=== PATIENT | female | born 1975 | race Caucasian/White ===

== ENCOUNTER 2018-07-05 19:22 | Emergency (ER) | payer BC, MEDICAID ==
[~2018-07-05] VITALS: Ht 165.1 cm; Wt 69.0 kg
[2018-07-05 19:28] VITALS: BP 126/89
[2018-07-05] MEDS ORDERED: CEPH-571 PO (19:58)
[2018-07-05] MEDS ORDERED: ONDA4TAB6 PO (19:58)
== END 2018-07-05 20:13 | disposition home or self-care (01) ==
LOC: ER 19:23
DX: J32.0 Chronic maxillary sinusitis (principal); B96.89 Other specified bacterial agents as the cause of diseases classified elsewhere; Z88.0 Allergy status to penicillin
CPT/HCPCS: 99283

== ENCOUNTER 2018-07-27 15:01 | Emergency (ER) | payer BC, OTHER ==
[~2018-07-27] VITALS: Ht 165.1 cm; Wt 63.6 kg
[~2018-07-27 15:01] MED LIST: CEPH-571 PO; ONDA4TAB6 PO
[2018-07-27 15:13] VITALS: BP 125/79
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
--- NOTE | 2018-07-27 15:35 | NUR ---
neck collar replaced with bigger size when admitted into room 13.
[2018-07-27] MEDS ORDERED: ONDA4TAB6 PO (16:01)
[2018-07-27] MEDS ORDERED: CYCL-1 PO (16:01)
== END 2018-07-27 16:22 | disposition home or self-care (01) ==
LOC: ER 15:02
DX: F07.81 Postconcussional syndrome (principal); M54.2 Cervicalgia; M62.838 Other muscle spasm; Z88.0 Allergy status to penicillin; W01.198A Fall on same level from slipping, tripping and stumbling with subsequent striking against other object, initial encounter; Y93.89 Activity, other specified; Y92.89 Other specified places as the place of occurrence of the external cause; Y99.9 Unspecified external cause status
CPT/HCPCS: 99283

== ENCOUNTER 2018-08-03 10:34 | Emergency (ER) | payer BC, OTHER ==
[~2018-08-03] VITALS: Ht 165.1 cm; Wt 68.0 kg
[~2018-08-03 10:34] MED LIST changes: +CYCL-1 PO
--- NOTE | 2018-08-03 11:06 | NUR ---
called to bed 19 to ekg, attempted ekg but machine was not working, took pt to room and did ekg
[2018-08-03 13:32] VITALS: BP 143/97
== END 2018-08-03 13:37 | disposition home or self-care (01) ==
LOC: ER 10:34
DX: G44.309 Post-traumatic headache, unspecified, not intractable (principal); F07.81 Postconcussional syndrome; Z88.0 Allergy status to penicillin
CPT/HCPCS: 70450; 93005; 99284

== ENCOUNTER 2024-05-31 13:50 | Emergency (ER) | payer BC ==
[~2024-05-31] VITALS: Ht 165.1 cm; Wt 64.5 kg
[2024-05-31 14:21] LABS: URINE HCG NEGATIVE (NEG)
[2024-05-31 14:25] LABS: BILIRUBIN,URINE NEGATIVE (Neg); CLARITY,URINE SLIGHTLY CLOUDY (Clear); COLOR,URINE YELLOW (Yellow); GLUCOSE, URINE NEGATIVE (Neg); KETONES,URINE NEGATIVE (Neg); LEUKOCYTE ESTERASE ,URINE NEGATIVE (Neg); NITRITES, URINE NEGATIVE (Neg); OCCULT BLOOD,URINE TRACE-INTACT (Neg); PH,URINE 5.5 (4.8-8.0); PROTEIN,URINE NEGATIVE (Neg); UROBILINOGEN,URINE 0.2 E.U/dL (0.2-1.0)
[2024-05-31 14:31] LABS: UA COLLECTION TYPE CLN CATCH MIDSTREAM
[2024-05-31 14:43] LABS: BACTERIA,URINE 2+ /HPF (Neg); SQUAMOUS EPITHELIAL CELL,UR MODERATE /LPF (FEW)
[2024-05-31 14:44] LABS: RBC,URINE 0-2 /HPF (0-2)
[2024-05-31 15:01] LABS: BASOPHILS % (AUTO) 0.1 % (0-1); EOSINOPHILS % (AUTO) 0 % (0-6); HEMATOCRIT 40.9 % (35.0-45.0); HEMOGLOBIN 14.1 g/dl (12.0-16.0); LYMPHOCYTES # (AUTO) 1.3 X10'3 (1.1-4.8); MEAN CORPUSCULAR HEMOGLOBIN 30.8 PG (27.0-31.0); MEAN CORPUSCULAR HGB CONC 34.5 g/dL (33.0-36.5); MEAN CORPUSCULAR VOLUME 89.2 FL (78-98); MEAN PLATELET VOLUME 7.5 FL (7.4-10.4); MONOCYTES # (AUTO) 0.4 X10'3 (0-0.9); MONOCYTES % (AUTO) 5.3 % (2-12); NEUTROPHILS # (AUTO) 5.9 X10'3 (1.8-7.7); NEUTROPHILS % (AUTO) 77.6 % (42-75); PLATELET COUNT 292 X10'3 (140-440); RED BLOOD COUNT 4.59 X10'6 (4.20-5.60); RED CELL DISTRIBUTION WIDTH 13.7 % (11.5-14.5); WHITE BLOOD COUNT 7.6 X10'3 (4.5-11.0)
[2024-05-31 15:33] LABS: ALANINE AMINOTRANSFERASE 35 U/L (12-78); ALBUMIN 3.8 G/DL (3.4-5.0); ALBUMIN/GLOBULIN RATIO 1.1 (1.1-1.5); ALKALINE PHOSPHATASE 72 IU/L (46-116); ANION GAP 9 (8-16); ASPARTATE AMINO TRANSFERASE 18 U/L (10-37); BILIRUBIN,TOTAL 0.6 MG/DL (0.1-1.0); BLOOD UREA NITROGEN 7 MG/DL (7-18); BUN/CREATININE RATIO 11.1 (10.0-20.0); CALCIUM 9.1 MG/DL (8.5-10.1); CHLORIDE 105 MMOL/L (99-107); CREATININE 0.63 MG/DL (0.40-0.90); GLUCOSE 94 MG/DL (70-104); LIPASE 41 U/L (16-77); POTASSIUM 3.7 MMOL/L (3.5-5.1); SODIUM 139 MMOL/L (135-145); TOTAL CARBON DIOXIDE 25.3 MMOL/L (24-32); TOTAL PROTEIN 7.4 G/DL (6.4-8.2); eCRCL 97 ML/MIN; eGFR > 90 ML/MIN
[2024-05-31] MEDS: HYDROcodone/acetaminophen 5mg/325mg tablet PO ONE (15:51)
[2024-05-31] MEDS ORDERED: CEPH-585 PO (16:22)
[2024-05-31] MEDS ORDERED: HYDR-3965 PO (16:22)
[2024-05-31 16:34] VITALS: BP 137/89; PULSE 85; RESP 16; TEMP 98.5; O2SAT 98
== END 2024-05-31 16:38 | disposition home or self-care (01) ==
LOC: ER 13:51
DX: N39.0 Urinary tract infection, site not specified (principal); F41.9 Anxiety disorder, unspecified; F32.A Depression, unspecified; Z88.0 Allergy status to penicillin; Z79.899 Other long term (current) drug therapy
CPT/HCPCS: 36415; 76700; 80053; 81001; 81025; 83690; 85025; 87088; 99284

== ENCOUNTER 2024-06-08 14:22 | Emergency (ER) | payer BC ==
[~2024-06-08] VITALS: Ht 165.1 cm; Wt 135.0 kg
[~2024-06-08 14:22] MED LIST changes: +CEPH-585 PO; +HYDR-3965 PO
[2024-06-08 14:33] VITALS: TEMP 97.8
[2024-06-08 16:14] LABS: BASOPHILS % (AUTO) 0.3 % (0-1); EOSINOPHILS % (AUTO) 0.2 % (0-6); HEMATOCRIT 39.6 % (35.0-45.0); HEMOGLOBIN 13.7 g/dl (12.0-16.0); LYMPHOCYTES # (AUTO) 1.8 X10'3 (1.1-4.8); LYMPHOCYTES % (AUTO) 21.5 % (21-51); MEAN CORPUSCULAR HEMOGLOBIN 30.7 PG (27.0-31.0); MEAN CORPUSCULAR HGB CONC 34.7 g/dL (33.0-36.5); MEAN CORPUSCULAR VOLUME 88.6 FL (78-98); MEAN PLATELET VOLUME 7.3 FL (7.4-10.4); MONOCYTES # (AUTO) 0.5 X10'3 (0-0.9); MONOCYTES % (AUTO) 6.3 % (2-12); NEUTROPHILS # (AUTO) 6.1 X10'3 (1.8-7.7); NEUTROPHILS % (AUTO) 71.7 % (42-75); PLATELET COUNT 293 X10'3 (140-440); RED BLOOD COUNT 4.47 X10'6 (4.20-5.60); RED CELL DISTRIBUTION WIDTH 13.7 % (11.5-14.5); WHITE BLOOD COUNT 8.5 X10'3 (4.5-11.0)
[2024-06-08 16:34] LABS: ALANINE AMINOTRANSFERASE 31 U/L (12-78); ALBUMIN 3.8 G/DL (3.4-5.0); ALBUMIN/GLOBULIN RATIO 1.1 (1.1-1.5); ALKALINE PHOSPHATASE 74 IU/L (46-116); AMYLASE 46 U/L (25-115); ANION GAP 4 (8-16); ASPARTATE AMINO TRANSFERASE 13 U/L (10-37); BILIRUBIN,TOTAL 0.4 MG/DL (0.1-1.0); BLOOD UREA NITROGEN 10 MG/DL (7-18); BUN/CREATININE RATIO 16.7 (10.0-20.0); CALCIUM 8.6 MG/DL (8.5-10.1); CHLORIDE 108 MMOL/L (99-107); GLUCOSE 93 MG/DL (70-104); LIPASE 43 U/L (16-77); SODIUM 141 MMOL/L (135-145); TOTAL CARBON DIOXIDE 28.6 MMOL/L (24-32); TOTAL PROTEIN 7.3 G/DL (6.4-8.2); eCRCL 102 ML/MIN; eGFR > 90 ML/MIN
[2024-06-08] MEDS: HYDROcodone/acetaminophen 10/325mg tab PO ONE (17:27)
[2024-06-08 18:00] VITALS: BP 139/89; PULSE 98; O2SAT 98
[2024-06-08] MEDS ORDERED: HYDR-3965 PO (18:04)
[2024-06-08 18:15] VITALS: RESP 18
== END 2024-06-08 18:27 | disposition home or self-care (01) ==
LOC: ER 14:22
DX: R10.11 Right upper quadrant pain (principal); F32.A Depression, unspecified; F41.9 Anxiety disorder, unspecified; Z88.0 Allergy status to penicillin
CPT/HCPCS: 36415; 76700; 80053; 82150; 83690; 85025; 99284

== ENCOUNTER 2024-09-04 17:14 | Emergency (ER) | payer BC ==
[~2024-09-04] VITALS: Ht 165.1 cm; Wt 63.3 kg
[~2024-09-04 17:14] MED LIST changes: -HYDR-3965 PO
[2024-09-04 17:40] LABS: BILIRUBIN,URINE NEGATIVE (Neg); CLARITY,URINE CLEAR (Clear); COLOR,URINE STRAW (Yellow); GLUCOSE, URINE NEGATIVE (Neg); KETONES,URINE NEGATIVE (Neg); LEUKOCYTE ESTERASE ,URINE NEGATIVE (Neg); NITRITES, URINE NEGATIVE (Neg); OCCULT BLOOD,URINE NEGATIVE (Neg); PROTEIN,URINE NEGATIVE (Neg); UROBILINOGEN,URINE 0.2 E.U/dL (0.2-1.0)
[2024-09-04 17:41] LABS: UA COLLECTION TYPE CLN CATCH MIDSTREAM; URINE HCG NEGATIVE (NEG)
[2024-09-04 17:59] LABS: BASOPHILS % (AUTO) 0.3 % (0-1); EOSINOPHILS % (AUTO) 0.2 % (0-6); HEMATOCRIT 41.4 % (35.0-45.0); HEMOGLOBIN 13.9 g/dl (12.0-16.0); LYMPHOCYTES # (AUTO) 1.7 X10'3 (1.1-4.8); LYMPHOCYTES % (AUTO) 23.7 % (21-51); MEAN CORPUSCULAR HEMOGLOBIN 29.6 PG (27.0-31.0); MEAN CORPUSCULAR HGB CONC 33.6 g/dL (33.0-36.5); MEAN CORPUSCULAR VOLUME 88.2 FL (78-98); MEAN PLATELET VOLUME 7.7 FL (7.4-10.4); MONOCYTES # (AUTO) 0.5 X10'3 (0-0.9); MONOCYTES % (AUTO) 6.4 % (2-12); NEUTROPHILS # (AUTO) 4.9 X10'3 (1.8-7.7); NEUTROPHILS % (AUTO) 69.4 % (42-75); PLATELET COUNT 313 X10'3 (140-440); RED CELL DISTRIBUTION WIDTH 13.7 % (11.5-14.5); WHITE BLOOD COUNT 7.1 X10'3 (4.5-11.0)
[2024-09-04 18:12] LABS: ALANINE AMINOTRANSFERASE 23 U/L (12-78); ALBUMIN 4.1 G/DL (3.4-5.0); ALBUMIN/GLOBULIN RATIO 1.4 (1.1-1.5); ALKALINE PHOSPHATASE 72 IU/L (46-116); ANION GAP 11 (8-16); ASPARTATE AMINO TRANSFERASE 17 U/L (10-37); BILIRUBIN,TOTAL 0.7 MG/DL (0.1-1.0); BLOOD UREA NITROGEN 6 MG/DL (7-18); BUN/CREATININE RATIO 8.3 (10.0-20.0); CALCIUM 8.9 MG/DL (8.5-10.1); CHLORIDE 107 MMOL/L (99-107); CREATININE 0.72 MG/DL (0.40-0.90); GLUCOSE 102 MG/DL (70-104); LIPASE 29 U/L (16-77); POTASSIUM 3.5 MMOL/L (3.5-5.1); SODIUM 143 MMOL/L (135-145); TOTAL CARBON DIOXIDE 25.1 MMOL/L (24-32); TOTAL PROTEIN 7.1 G/DL (6.4-8.2); eCRCL 85 ML/MIN; eGFR 86 ML/MIN
[2024-09-04] MEDS ORDERED: iohexol 300mg/ml 100ml inj. ONE (19:26)
[2024-09-04] MEDS: ketorolac trometh 15mg/ml vial 15 MG/ML ML IV ONE (19:40)
[2024-09-04] MEDS: ondansetron/PF 4mg/2ml inj IV ONE (19:40)
[2024-09-04] MEDS: morphine 2 MG/ML inj. syringe IV ONE (21:16)
[2024-09-04] MEDS ORDERED: DICY10CA88 PO (22:17)
[2024-09-04] MEDS ORDERED: OMEP40CA21 PO (22:17)
[2024-09-04 22:32] VITALS: BP 144/85; PULSE 82; RESP 16; TEMP 98.1; O2SAT 97
== END 2024-09-04 22:28 | disposition home or self-care (01) ==
LOC: ER 17:15
DX: R10.11 Right upper quadrant pain (principal); F41.9 Anxiety disorder, unspecified; F32.A Depression, unspecified; Z88.0 Allergy status to penicillin
CPT/HCPCS: 36415; 74177; 76700; 80053; 81003; 81025; 83690; 85025; 96374; 96375; 99285; J1885; J2270; J2405; Q9967